=== PATIENT | female | born 1955 | race African-American/Black ===

== ENCOUNTER 2018-09-29 11:44 | Emergency (ER) | payer SELFPAY ==
--- NOTE | 2018-09-29 13:09 | RAD ---
EXAM: 3 views of the sacrum/coccyx HISTORY: Sacral/coccygeal pain COMPARISON: None FINDINGS: 3 views of the sacrum/coccyx shows no evidence of displaced sacral or coccygeal fracture. T he sacral alae are symmetric. The sacroiliac joints and pubic symphysis are unremarkable. Degenerative changes seen in the right hip. IMPRESSION: No evidence of sacral or coccygeal fracture.
--- NOTE | 2018-09-29 13:10 | RAD ---
Exam: Single view of the pelvis HISTORY: Pelvic and hip pain COMPARISON: None FINDINGS: A single view the pelvis shows no evidence of acute fracture or dislocation. Moderate degen erative changes seen in the right hip. No degenerative changes seen in the left hip. Degenerative changes are seen in the spine. IMPRESSION: No evidence of acute osseous abnormality.
[2018-09-29] MEDS ORDERED: Ketorolac Tromethamine 30 MG/ML VIAL ONE (14:07)
[2018-09-29] MEDS ORDERED: HYDROcodone/Acetaminophen 5/325 mg Tablet ONE (14:07)
--- NOTE | 2018-09-29 14:39 | CT ---
CT lumbar spine noncontrast: HISTORY: 63-year-old female with low back pain due to fall, acute FINDINGS: There are 5 lumbar-type vertebrae. There is a burst fracture of L4 with mild bony retropulsion of the posterior superior endplate, and approximately 25% maximum loss of height anteriorly. No fracture lucency is visible. No hematoma in the prevertebral space. Similar finding of L5, with approximately 50% loss of height centrally, and minimal bony retropulsion of posterior superior endplate. Neither of these fractures have prevertebral soft tissue edema, but the L5 compression fracture does have numerous small, short linear fracture lucencies. Mild to moderate central spinal canal stenosis at L3-4. The rest of the vertebral body heights are maintained. IMPRESSION: 1. Compression/burst fracture of L5, with at least some component that is acute, in addition to possi destiny old component. 2. Old burst fracture of L4.
== END 2018-09-29 18:39 | disposition home or self-care (01) ==
LOC: ERS 11:44
DX: S32.051A Stable burst fracture of fifth lumbar vertebra, initial encounter for closed fracture (principal); I10 Essential (primary) hypertension; J45.909 Unspecified asthma, uncomplicated; F17.210 Nicotine dependence, cigarettes, uncomplicated; W19.XXXA Unspecified fall, initial encounter
CPT/HCPCS: 72131; 72170; 72220; 96372; J1885

== ENCOUNTER 2019-10-19 18:20 | Emergency (ER) | payer OTHER, SELFPAY | END 2019-10-19 18:55 | disposition home or self-care (01) | LOC: ERS 18:20 | DX: J45.909 Unspecified asthma, uncomplicated (principal); I10 Essential (primary) hypertension; F17.210 Nicotine dependence, cigarettes, uncomplicated | CPT/HCPCS: 99284 ==

== ENCOUNTER 2021-12-01 14:43 | Emergency (ER) | payer OTHER, SELFPAY ==
[2021-12-01] MEDS ORDERED: Dexameth. Sod Phosp. 10 MG/ML (CHEMO USE ONLY) ONE (15:33)
[2021-12-01] MEDS ORDERED: Ketorolac Tromethamine 30 MG/ML VIAL ONE (15:33)
== END 2021-12-01 16:10 | disposition home or self-care (01) ==
LOC: ERS 14:43 → EEVIPCON 14:43 → ERS 16:10
DX: M54.50 Low back pain, unspecified (principal); I10 Essential (primary) hypertension; F17.210 Nicotine dependence, cigarettes, uncomplicated; F17.290 Nicotine dependence, other tobacco product, uncomplicated; W01.0XXA Fall on same level from slipping, tripping and stumbling without subsequent striking against object, initial encounter
CPT/HCPCS: 96372; 99283; J1100; J1885